=== PATIENT | female | born 1965 | race Two or more races ===

== ENCOUNTER 2017-05-26 04:36 | Inpatient (IN) | payer OTHER ==
[~2017-05-26] VITALS: Ht 162.6 cm; Wt 82.0 kg
--- NOTE | 2017-05-26 05:01 | NUR ---
PT PRESENTED TO ED WITH C/O EPIGASTRIC PAIN X 1 HOUR AGO. PT STATES PAIN DOES NOT RADIATE. PT DESCRIBES PAIN PRESSURE/BURNING, PAIN SCALE 6/10. PT ALSO REPORT N&V. PT STATES HAD APPRX 4 VOMITING EPISODES IN THE LAST HOURS. NO PALPABLE MASSESS NOTED, ABD TENDER TO TOUCH. PT DENIES DIZZINESS OR SYNCOPE. PT IS AAOX4, BREATHING EVEN AND UNLABORED. PT IN NO ACUTE DISTRESS
--- NOTE | 2017-05-26 05:32 | NUR ---
PERFORMED EKG, GIVEN TO DR. MACHADO. PER PHYSICIAN, PT DOES NOT HAVE ANY ACUTE SYMPTOMS AT THIS TIME.
--- NOTE | 2017-05-26 05:54 | NUR ---
PT WITH C/O PAIN, SPOUSE BY BEDSIDE. PT IS AAOX4, BREATHING EVEN AND UNLABORED IN NO ACUTE DISTRESS
--- NOTE | 2017-05-26 06:55 | NUR ---
MEDICATED PT PER E-MAR. PT TOLORATED.
[2017-05-26 06:59] LABS: BASOPHIL % 0.3 % (0-2); PLATELET COUNT 274 x10^3mcL (130-400); RED CELL DISTRIBUTION WIDTH 13.9 % (11.5-14.5)
--- NOTE | 2017-05-26 07:06 | NUR ---
GAVE REPORT TO WALI PUENTE, TO ASSUME CARE PRIMARY NURSE
[2017-05-26 07:14] LABS: CALCIUM 8.6 mg/dL (8.5-10.1); CARBON DIOXIDE 28.1 mmol/L (21-32); CHLORIDE SERUM 106 mmol/L (98-107); CREATININE SERUM 0.8 mg/dL (0.6-1.0); GFR1 > 60 mL/min; GLUCOSE SERUM 121 mg/dL (74-106); POTASSIUM SERUM 4.1 mmol/L (3.5-5.1); SODIUM SERUM 141 mmol/L (136-145)
[2017-05-26 07:18] LABS: ALBUMIN 3.5 g/dL (3.4-5.0); ALKALINE PHOSPHATASE 65 U/L (46-116); ALT/SGPT 22 U/L (14-59); AMYLASE 76 U/L (25-115); AST/SGOT 13 U/L (15-37); BILIRUBIN TOTAL 0.26 mg/dL (0.20-1.00); LIPASE 680 IU/L (73-393); TOTAL PROTEIN, SERUM 7.3 g/dL (6.4-8.2)
--- NOTE | 2017-05-26 07:18 | NUR ---
SEEN AND ASSESSED. ULTRA-SOUND OF THE GALLBLADDER IN PROGRESS. VSS. HAS NO COMPALINTS AT THIS TIME. IS AT THE BEDSIDE.
--- NOTE | 2017-05-26 10:00 | NUR ---
RECIEVED PT. FROM ER VIA [facility] APPEARS LETHARGIC BUT ARROUSABLE. AT BEDSIDE,PUT ON TEL.#13 MONITOR SHOWS NSR.DENIES CHEST PAIN,DENIES ABD. PAIN ,NO N/V NOTED AT THIS TIME. MADE PT. COMFORTABLE IN BED. CALL LIGHT W/ IN REACH.IV FLUIDS INFUSING WELL TO RT. FA.ROUTINE ADMISSION CARE RENDERED.ORIENTED TO ROOM AND SURROUNDINGS.PUT ON 02 AT 2 L N/C NO ACUTE RESP. DISTRESS NOTED. MADE AWARE OF PT. ADMISSION, SCD APPLIED TO MINDI. LOWER EXTR WILL CONT. PLAN OF CARE. .
[2017-05-26 10:35] VITALS: BP 144/84
--- NOTE | 2017-05-26 11:20 | NUR ---
DR. RANGEL HERE AND SEEN THE PT. AND NOTIFIED PT. LETHARGIC BUT ARROUSABLE V/S TAKEN AND RECORDED.NO ACUTE DISTRESS NOTED.
[2017-05-26 11:37] LABS: CHOLESTEROL/HDL RATIO 5.3; MAGNESIUM 2.1 mg/dL (1.8-2.4)
[2017-05-26 11:45] LABS: FREE T4 1.12 ng/dL (0.76-1.46); FREE THYROXINE INDEX 3.3 ug/dL (1.4-4.5); T4(THYROXINE) 9.8 ug/dL (4.7-13.3)
[2017-05-26 11:59] LABS: T3 TOTAL 1.3 ng/mL
--- NOTE | 2017-05-26 12:30 | NUR ---
PT AWAKEN AND ASSITED TO BATHROOM. PT VOIDED. DENIES NAUSEA AND VOMITING. DENIES ABDOMINAL PAIN AT THIS TIME.
[2017-05-26 13:56] VITALS: BP 111/76
[2017-05-26 17:43] VITALS: BP 110/72
--- NOTE | 2017-05-26 18:25 | NUR ---
PT SLEPT MOST OF SHIFT. NO ACUTE DISTRESS NOTED. CALL LIGHT IS WITHIN REACH. KEPT NPO ORDERED.
--- NOTE | 2017-05-26 19:10 | NUR ---
PT A/O X4. PT LETHARGIC, BUT EASILY AROUSABLE. TELE #13, NSR AT 79, DENIES CHEST PAIN. PULSES PALPABLE, NO EDEMA NOTED. LUNG SOUNDS CLEAR, ON 2L NC, DENIES SOB. ABD SOFT AND NONDISTENDED, BOWEL SOUNDS ACTIVE, PT DENIES N/V AT THIS TIME. VOIDS ADEQUATELY, BRP. AMBULATORY WITHOUT ASSIST. SKIN IS INTACT. PT DENIES PAIN AT THIS. IV FLUIDS INFUSING WELL TO RAC. BED IN LOWEST SETTING, SIDE RAILS UP X2, CALL LIGHT WITHIN REACH. WILL CONTINUE TO MONITOR.
[2017-05-26 21:27] VITALS: BP 105/80
--- NOTE | 2017-05-26 23:30 | NUR ---
PT AWAKE AT THIS TIME WITH AT BED SIDE. PT DENIES PAIN AND N/V AT THIS TIME. IVF INFUSING WELL. WILL CONTINUE TO MONITOR.
--- NOTE | 2017-05-27 01:50 | NUR ---
PT ASLEEP AT THIS TIME, BUT EASILY AROUSABLE. BREATHING EVEN AND UNLABORED, WITH NO DISTRESS NOTED. NO SIGNS OF PAIN OBSERVED. IVF INFUSING WELL. WILL CONTINUE TO MONITOR.
--- NOTE | 2017-05-27 04:40 | NUR ---
PT COMPLAINING OF 6/10 HEADACHE. ADMINISTERED TYLENOL ORDERED. WILL CONTINUE TO MONITOR FOR PAIN RELIEF.
[2017-05-27 06:37] VITALS: BP 124/87
--- NOTE | 2017-05-27 07:06 | NUR ---
PT ASLEEP AT THIS TIME, BUT EASILY AROUSABLE. NO RESP DISTRESS NOTED, NO SIGNS OF PAIN OBSERVED. IVF INFUSING WELL. ALL NEEDS MET. WILL ENDORSE CARE TO AM NURSE.
[2017-05-27 07:12] LABS: BASOPHIL % 0.5 % (0-2); PLATELET COUNT 244 x10^3mcL (130-400); RED CELL DISTRIBUTION WIDTH 13.9 % (11.5-14.5)
--- NOTE | 2017-05-27 07:25 | NUR ---
PT SEEN AWAKE, ALERT, ORIENTED. PT NO COMPLAIN OF PAIN AT THIS TIME. PT BREATHING ON RA, EVEN, UNLABORED. IV SITE PATENT, INTACT. IVF INFUSING WELL.
[2017-05-27 07:28] LABS: CALCIUM 7.9 mg/dL (8.5-10.1); CARBON DIOXIDE 29.5 mmol/L (21-32); CHLORIDE SERUM 108 mmol/L (98-107); CREATININE SERUM 0.6 mg/dL (0.6-1.0); GFR1 > 60 mL/min; GLUCOSE SERUM 100 mg/dL (74-106); PHOSPHOROUS 2.5 mg/dL (2.5-4.9); POTASSIUM SERUM 3.5 mmol/L (3.5-5.1); SODIUM SERUM 142 mmol/L (136-145)
[2017-05-27 09:25] VITALS: BP 105/83
[2017-05-27 10:06] VITALS: BP 105/83
[2017-05-27 10:51] LABS: microscopic required? NO
[2017-05-27 11:18] LABS: UA SPECIFIC GRAVITY 1.015 (1.005-1.035); urine erythrocyte NEGATIVE (NEGATIVE)
[2017-05-27 11:28] LABS: AMPHETAMINE QUAL UR NONE DETECTED (NEG <=1000)
[2017-05-27 12:09] VITALS: Ht 162.6 cm; Wt 82.0 kg
--- NOTE | 2017-05-27 13:12 | NUR ---
Initial Nutrition Assessment Dx: Pancreatitis PMHx: patient unsure PSHx:None Labs: (05/27) B, Ca:7.9L, WBC:11.7H, (05/26) LDL:137H, HDL:37L, A1c:5.8 Meds: D5 1/2 NS, Dilauded, Humulin, NS IV, Zofran Diet:Full liquid PO Intake:No PO intake recorded due to pt advanced to full liquid diet for lunch Ht: 64in, 5'4" Wt: 181#, 82.35kg BMI: 31.2kg/m2 (obesity class I) IBW:120#, 54.5kg %IBW:151% adjusted bw: 135#, 61kg UBW:176# Age:52 y/o female Food Allergies:NKFA Skin:intact Yves: 20 Edema:None GI: active bowel sounds Last BM:05/25 Nursing Trigger: N/V/D>3days and poor PO intake>3days Pt admitted with acute pancreatitis (Amylase 76 and Lipase 680) per H&P. Per bed huddle this morning, pt will be staying and will start on a trial clear liquid diet. During visit, observed pt laying in bed with no family at bedside. Pt was inquiring about when she would be able to eat. RD expalined to the pt they are going to start her on liquids to see how she does then possibly advancing her to solids. Pt with no c/o N/V/D/C at this time. Problem with: N:No V:No D:No C:No Problems with: Chewing:No Swallowing: No Current appetite: pt c/o of hunger. Poor appetite prior to admission Recent wt change:+5# %wt change:-2.8% Vitamin/Supplement use:No Special diet at home:Regular Physical activity:Pt used to walk but injured her knee 2-3 months ago Education: Provided pt with handout on pancreatitis nutrition therapy and emphasized the importance of limiting fats since fat is hard for your body to digest and cause pain when you have pancreatitis. Pt was receptive and verbalized understanding. Estimated Nutritional Needs Based on adjusted body weight 61kg Energy: 1525-1830kcal/d (25-30kcal/kg for maintenace) Protein:49-61g/d (0.8-1.0g/kg for maintenace) Fluid:8464-9056 ml/d (1 ml/kcal) or per doctor Nutrition Diagnosis 1. Altered nutrition labs related to pancreatitis as evidenced by elevated amylase:76 and Lipase:680. Intervention 1. Recommend advance diet as tolerated to full liquid then to low fat due to pt with pancreatitis. Monitor/Evaluate Goal: PO intake at least 75% of estimated needs Monitor: PO intake, Labs, GI function F/U in 3-5 days as moderate risk:
--- NOTE | 2017-05-27 13:13 | NUR ---
1. Recommend advance diet as tolerated to full liquid then to low fat due to pt with pancreatitis.
[2017-05-27 14:07] VITALS: BP 130/82
--- NOTE | 2017-05-27 16:47 | NUR ---
GOT REPROT PT'S BLOOD GLUCOSE 64, CHECKED PT IS AWAKE, NO COMPLAIN OF ANY DISCOMFORT AT THIS TIME. APPLE JUICE AND JELLO GIVEN TO MAINTAIN BLOOD SUGAR.
[2017-05-27 17:03] VITALS: BP 139/87
--- NOTE | 2017-05-27 18:28 | NUR ---
PT TOLERATE WELL ON LOW FAT DIET. NO COMPLAIN OF NAUSEA AND ABD PAIN. PT BREATHING ON RA, EVEN, UNLABORED. IV SITE PATENT, INTACT. IVF INFUSING WELL.
--- NOTE | 2017-05-27 19:56 | NUR ---
SHIFT REASSESSMENT DONE.PATIENT ALERT AND ORIENTED.NOT IN RESP DISTRESS.AMBULATORY RESTROOM.TELE 13 SR.SKIN INTACT.PATIENT CAME IN WITH PANCREATITIS,HAD BM TODAY.REG LOW FAT DIET NOW.SCD ORDERED.CALL LIGHT IN REACH.
[2017-05-27 20:43] VITALS: BP 136/86
--- NOTE | 2017-05-27 21:00 | NUR ---
PATIENT HAS NO PM MEDS,BLOOD SUGAR 84.NO COVERAGE NEEDED.ASSIST TO RESTROOM,VOIDING QS,IVRF AT 125 CC/ HOUR,SAYS SHE URINATE OFTEN BECAUSE OF THE IV.
--- NOTE | 2017-05-27 23:00 | NUR ---
PATIENT DECLINE ANY PAIN MED.SAYS SHE SLEEP WELL AT NOC,BUT JUST UP AND DOWN BATHROOM,VOIDING WELL.
--- NOTE | 2017-05-28 05:55 | NUR ---
BLOOD SUGAR THIS AM 86.NS AT 125 CC/ HOUR.WILL ENDORSE TO NEXT SHIFT.
[2017-05-28 06:19] LABS: PLATELET COUNT 254 x10^3mcL (130-400); RED CELL DISTRIBUTION WIDTH 13.9 % (11.5-14.5)
[2017-05-28 06:33] VITALS: BP 149/72
[2017-05-28 06:33] LABS: AMYLASE 30 U/L (25-115); CALCIUM 8.4 mg/dL (8.5-10.1); CARBON DIOXIDE 30.5 mmol/L (21-32); CHLORIDE SERUM 106 mmol/L (98-107); CREATININE SERUM 0.7 mg/dL (0.6-1.0); GFR1 > 60 mL/min; GLUCOSE SERUM 94 mg/dL (74-106); LIPASE 116 IU/L (73-393); MAGNESIUM 2.1 mg/dL (1.8-2.4); PHOSPHOROUS 2.8 mg/dL (2.5-4.9); POTASSIUM SERUM 3.4 mmol/L (3.5-5.1); SODIUM SERUM 141 mmol/L (136-145)
--- NOTE | 2017-05-28 07:22 | NUR ---
PT IS RESTING ON BED, NO COMPLAIN OF PAIN AT THIS TIME. PT BREATHING ON RA, EVEN, UNLABORED, IV SITE PATENT, INTACT. IVF INFUSING WELL.
[2017-05-28 07:45] VITALS: BP 132/79
[2017-05-28 09:41] VITALS: BP 121/65
[2017-05-28] MEDS ORDERED: ZOF4 PO (10:00)
[2017-05-28 10:36] LABS: BAND NEUTROPHIL 2 % (0-10); BASOPHIL 0 % (0-2); MONOCYTE 6 % (0-7); SEGMENTED NEUTROPHILS 48 % (37-75); rbc morphology (normal/abnorm) ABNORMAL (NORMAL)
[2017-05-28 10:37] LABS: PLATELET MORPHOLOGY GIANT PLATELET SEEN
[2017-05-28] MEDS ORDERED: IBUPROFEN400 MG PO (10:48)
[2017-05-28 11:33] VITALS: BP 121/65
--- NOTE | 2017-05-28 12:15 | NUR ---
PT'S GLUCOSE CHECK 54, RECHECK 63. PT IS TALKING ON PHONE, NO COMPLAIN OF ANY SYMPTOMS 2/2 LOW GLUCOSE. ORANGE JUICE AND JELLO GIVEN TO MAINTAIN SUGAR LEVEL TO LUNCH.
--- NOTE | 2017-05-28 13:33 | NUR ---
PT IS READY TO DISCHARGE. DISCHARGE INSTRUCTION GIVEN. IV IS REMOVED. PT'S SON WILL PICK HER UP. NO DISTRESSED NOTED. PT NO COMPLAIN OF ANY DISCOMFORT.
== END 2017-05-28 13:50 | disposition home or self-care (01) | DRG 440 ==
LOC: ED 04:36 → DU 08:19
PROVIDERS: Family Medicine; Specialist; ADMIT Family Medicine
DX: K85.90 Acute pancreatitis without necrosis or infection, unspecified (principal); R73.03 Prediabetes; E02 Subclinical iodine-deficiency hypothyroidism; E66.9 Obesity, unspecified; Z53.29 Procedure and treatment not carried out because of patient's decision for other reasons; D72.829 Elevated white blood cell count, unspecified; E78.5 Hyperlipidemia, unspecified; E87.8 Other disorders of electrolyte and fluid balance, not elsewhere classified; Z68.31 Body mass index [BMI] 31.0-31.9, adult; Z71.3 Dietary counseling and surveillance
CPT/HCPCS: 82962; 83880; 84439; J0713; J1170; J1885; J2405; J3490; J7030; J7042; Q0092; Q0162; Q9967